=== PATIENT | female | born 2000 | race American Indian/Alaskan Native ===

== ENCOUNTER 2021-09-15 10:03 | Emergency (ER) | payer BC ==
[~2021-09-15] VITALS: Ht 167.6 cm; Wt 65.9 kg
[2021-09-15 10:04] VITALS: TEMP 98.9
[2021-09-15] MEDS ORDERED: NORCO 325 MG-51 TAB PO (12:20)
[2021-09-15 12:43] VITALS: BP 126/84; PULSE 65
== END 2021-09-15 12:43 | disposition home or self-care (01) ==
LOC: COL.ER 10:03
DX: S43.015A Anterior dislocation of left humerus, initial encounter (principal); X50.9XXA Other and unspecified overexertion or strenuous movements or postures, initial encounter
CPT/HCPCS: J2704; J3010